=== PATIENT | female | born 1945 | race Caucasian/White ===

== ENCOUNTER → 2017-12-15 | Outpatient (CLI) | payer BC ==
[~2017-12-15] MED LIST: ALPH300C PO; BARB1CAP PO; GLIM1TAB2 PO
== END | disposition home or self-care (01) ==
LOC: C.RDSM 15:59
PROVIDERS: ATTEND Physical Medicine & Rehabilitation Sports Medicine
DX: M25.511 Pain in right shoulder (principal)

== ENCOUNTER 2020-01-06 06:17 | Observation (INO) ==
[2020-01-06] MEDS ORDERED: dilTIAZem HCl 5 MG/ML 5 ML VIAL IV STA (06:39)
[2020-01-06 06:43] LABS: Basophils # (auto) 0.02 K/uL (0-0.2); Basophils % (auto) 0.2 %; Eosinophils # (auto) 0.07 K/uL (0-0.5); Eosinophils % (auto) 0.8 %; Hematocrit (blood only) 43.1 % (37-47); Hemoglobin 14.3 g/dL (12.0-16.0); Immature Granulocytes # (auto) 0.03 K/uL (0.00-0.02); Immature Granulocytes % (auto) 0.3 %; Lymphocytes % (auto) 20.4 %; Mean Corpuscular Hemoglobin 28.4 pg (25-34); Mean Corpuscular Hgb Conc 33.2 g/dL (32-36); Mean Corpuscular Volume 85.7 fL (80-100); Monocytes # (auto) 0.59 K/uL (0.11-0.59); Monocytes % (auto) 6.3 %; Platelet Count 264 K/uL (130-400); RDW Coefficient of Variation 14.4 % (11.5-14.5); RDW Standard Deviation 44.1 fL (36.4-46.3); Red Blood Count 5.03 M/uL (4.2-5.4); White Blood Count 9.31 K/uL (4.8-10.8)
[2020-01-06] MEDS: MAGNESIUM SULFATE / D5W 1 GM/100 ML BAG IV SCH ×4 (06:46→10:16)
[2020-01-06] MEDS ORDERED: NovoLIN-R INSULIN PER UNIT CHARGE IV STA (06:51)
[2020-01-06 06:53] LABS: INR 1.1 (0.9-1.1); Partial Thromboplastin Time 27.5 Seconds (21.0-31.0); Prothrombin Time 11.8 Seconds (9.0-12.0)
--- NOTE | 2020-01-06 06:53 | XRay Report ---
XR chest 1V portable CLINICAL HISTORY: Atypical chest pain COMPARISON STUDY: No previous studies for comparison. FINDINGS: The cardiac and mediastinal contours are normal. There is no evidence of focal pulmonary co nsolidation. There is no evidence of failure. No pleural effusions are visualized.[There is an old pr oximal right humeral deformity. IMPRESSION: No active disease in the chest. ACT 112: Negative or not required by law. Electronically signed by: Alexei Jones M.D. 01/06/2020 6:52 AM
[2020-01-06 07:03] LABS: iSTAT Creatinine 0.4 mg/dl (0.6-1.3); iSTAT Hemoglobin 13.6 g/dl (12.0-16.0); iSTAT Ionized Calcium 1.14 mmol/l (1.12-1.32); iSTAT Potassium 3.9 mmol/L (3.3-5.0)
--- NOTE | 2020-01-06 07:07 | Emergency Department Note ---
History of Present Illness General Chief complaint: Back Injury/Pain Stated complaint: BACK PAIN Time Seen by Provider: 01/06/20 06:32 Source: patient, family (), RN notes reviewed and old records reviewed Mode of arrival: ambulatory Limitations: no limitations History of Present Illness Provider complaint: Back pain Onset (ago): week(s) 3 Location: back Radiation: non-radiation Severity: moderate Pain Consistency: + colicky Maximum Pain Intensity: 6 Current Pain Intensity: 6 Quality: + aching Relieved By: + immobilization Exacerbated By: + movement Associated symptoms: + denies other symptoms; no chest pain, no fever/chills, no nausea/vomiting and no shortness of breath This is a 74-year-old female who presents the emergency department complaining of back pain. The patient reports she is been having back pain for the past 3 weeks. She was seen by her primary care physician and was placed on acyclovir for presumed shingles. The patient then followed up with a masonry installer in the [place] area who felt that the patient had an eczema. She reports her back pain is become much worse over the past 3 days. She has not taken anything for the pain this morning. Patient denies any heart history but is a diabetic. Home Medications Home Medications Medication Instructions Recorded Confirmed Type acyclovir 800 mg PO TID 01/06/20 01/06/20 History clobetasol 1 applic TOPICAL UD 01/06/20 01/06/20 History gabapentin 100 mg PO BID 01/06/20 01/06/20 History glimepiride 1 mg PO DAILY 01/06/20 01/06/20 History methylprednisolone 0 mg PO UD 01/06/20 01/06/20 History Allergies Allergy/AdvReac Type Severity Reaction Status Date / Time No Known Allergies Allergy Unverified 01/06/20 06:40 Past Med/Surg History Medical History (Updated 01/07/20 @ 02:37 by Francis Colorado MD) Atrial fibrillation with RVR Diabetes Hyperlipidemia Osteoporosis Surgical History History of gynecologic surgery S/P trigger finger release Family History Other Cancer Diabetes Osteoporosis Stroke Social History Smoking Status: Never smoker Second Hand Exposure: No; Do You Dip or Chew Tobacco: No; Hx Alcohol Use: No Hx Substance Use: No Preferred Language: Hebrew Communication Ability: Effective 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 Beliefs That Will Affect Care: None Current Living Situation: Spouse Feels Safe at Home: Yes Safety Concerns: Feels Safe At This Time Review of Systems A total of 10 systems reviewed and were otherwise negative Physical Exam Vital Signs Vital Signs - 24 hr 01/06/20 06:21 01/06/20 06:34 01/06/20 06:37 Temperature 36.4 C L Temperature Source Oral Pulse Rate 137 H 150 H Pulse Rate [Apical] Pulse Rate from SpO2 Sensor Pulse Rhythm Irregular Respiratory Rate 16 Respiratory Depth Normal Blood Pressure 121/78 Blood Pressure [Left Arm] Blood Pressure Mean 92 Blood Pressure Mean [Left Arm] Blood Pressure Position Sitting Pulse Oximetry 97 97 Oxygen Delivery Method Room Air Room Air Room Air Sepsis Recent Fever Within 48 Hours No Sepsis New/Unexplained Change in Mental Status No Sepsis Action Taken by Nursing No Action Required 01/06/20 06:56 01/06/20 07:00 01/06/20 07:09 Temperature Temperature Source Pulse Rate 97 H 92 H Pulse Rate [Apical] 93 H Pulse Rate from SpO2 Sensor 100 H 93 H Pulse Rhythm Respiratory Rate 21 19 18 Respiratory Depth Blood Pressure 102/65 108/66 Blood Pressure [Left Arm] 108/66 Blood Pressure Mean 74 78 Blood Pressure Mean [Left Arm] 80 Blood Pressure Position Pulse Oximetry 95 95 96 Oxygen Delivery Method Room Air Room Air Room Air Sepsis Recent Fever Within 48 Hours Sepsis New/Unexplained Change in Mental Status Sepsis Action Taken by Nursing 01/06/20 09:00 Temperature Temperature Source Pulse Rate Pulse Rate [Apical] 79 Pulse Rate from SpO2 Sensor Pulse Rhythm Respiratory Rate 18 Respiratory Depth Blood Pressure Blood Pressure [Left Arm] 126/69 Blood Pressure Mean Blood Pressure Mean [Left Arm] 88 Blood Pressure Position Pulse Oximetry 98 Oxygen Delivery Method Room Air Sepsis Recent Fever Within 48 Hours Sepsis New/Unexplained Change in Mental Status Sepsis Action Taken by Nursing VITAL SIGNS - Vital signs and nursing notes were reviewed. GENERAL - 74-year-old female appearing stated age who is in no acute distress. Communicates well with provider and answers questions appropriately. SKIN - Without rashes. HEAD - NC/AT. EYES - PERRL with EOMI bilaterally. Sclera anicteric. Palpebral conjunctiva pink and moist with no injection noted. EARS - No deformities of external structures noted on gross examination bilaterally. No pain elicited with palpation of the tragus bilaterally. External auditory canals without discharge or otorrhea. Tympanic membranes pearly echeverria without retraction or bulging. No fluid or purulent material visualized behind the TM. Handle of malleus, umbo, cone of light, pars tensa/flaccid all easily visualized. NOSE - Midline and without cyanosis. No epistaxis or purulent drainage noted. Septum midline without deviation or septal hematoma noted. MOUTH/OROPHARYNX - Without perioral cyanosis. Buccal mucosa pink and moist and without leukoplakia. Tongue midline with equal elevation of palate bilaterally. No tonsillar hypertrophy, erythema, or exudates noted. dentition noted. NECK - Neck with FROM. Supple to palpation. lymphadenopathy noted. No nuchal rigidity. LUNGS - Chest wall symmetric without accessory muscle use, intercostals retractions, or central cyanosis. Normal vesicular breath sounds CTA B/L. No wheezes, rales, or rhonchi appreciated. CARDIAC - RRR with S1/S2. No murmur, rubs, or gallops appreciated. ABDOMEN - Abdominal contour without pulsations or visible masses. BS normoactive all four quadrants. No tenderness, palpable masses, hepatosplenomegaly, or ascites noted. EXTREMITIES - No clubbing or peripheral cyanosis. No pretibial edema present. +3/5 radial, posterior tibial, and dorsalis pedis pulses palpated throughout. +5/5 strength noted in UE/LE bilaterally. NEUROLOGIC - Cranial nerves II through XII grossly intact. Sensory intact to light touch throughout. Patellar reflexes +2/4. PSYCH - A&Ox3 and cooperates fully with examiner. Pt is very pleasant and interacts well with examiner. Course Administered Medications Apixaban (Apixaban 5 Mg Tablet) 5 mg PO BID KIERSTEN Stop: 02/05/20 20:59 Last Admin: 01/06/20 20:34 Dose: 5 mg Documented by: [id number] Insulin Aspart (Insulin Aspart 100 Units/Ml 3 Ml Pen) 0 units SC ACHS KIERSTEN Stop: 02/05/20 11:30 Last Admin: 01/06/20 20:34 Dose: 3 units Documented by: [id number] Cosigned by: [id number] Admin: 01/06/20 18:08 Dose: 6 units Documented by: [id number] Cosigned by: [id number] Admin: 01/06/20 12:58 Dose: 9 units Documented by: [id number] Cosigned by: [id number] Metoprolol Tartrate (Metoprolol Tartrate 25 Mg Tab) 25 mg PO BID [facility] Stop: 02/05/20 11:30 Last Admin: 01/06/20 20:34 Dose: 25 mg Documented by: [id number] Admin: 01/06/20 13:00 Dose: 25 mg Documented by: [id number] Discontinued Medications Diltiazem HCl (Diltiazem Hcl 5 Mg/Ml 5 Ml Vial) 12 mg IV NOW STA Stop: 01/06/20 06:40 Last Admin: 01/06/20 06:51 Dose: 12 mg Documented by: [id number] Cosigned by: [id number] Magnesium Sulfate/Dextrose (Magnesium Sulfate / D5w) 1 gm in 100 mls @ 200 mls/hr IV Q30M KIERSTEN Stop: 01/06/20 07:38 Last Infusion: 01/06/20 08:05 Dose: 0 mls/hr Documented by: [id number] Admin: 01/06/20 07:34 Dose: 200 mls/hr Documented by: [id number] Infusion: 01/06/20 07:28 Dose: 0 mls/hr Documented by: [id number] Admin: 01/06/20 06:46 Dose: 200 mls/hr Documented by: [id number] Magnesium Sulfate/Dextrose (Magnesium Sulfate / D5w) 1 gm in 100 mls @ 200 mls/hr IV Q30M [facility] Stop: 01/06/20 07:39 Last Infusion: 01/06/20 10:46 Dose: 0 mls/hr Documented by: [id number] Admin: 01/06/20 10:16 Dose: 200 mls/hr Documented by: [id number] Infusion: 01/06/20 08:55 Dose: 0 mls/hr Documented by: [id number] Admin: 01/06/20 08:13 Dose: 200 mls/hr Documented by: [id number] Insulin Aspart (Insulin Aspart 100 Units/Ml 3 Ml Pen) 0 units SC TODAY@0200 ONE Stop: 01/07/20 02:01 Last Admin: 01/07/20 02:03 Dose: Not Given Documented by: [id number] Cosigned by: [id number] Insulin Glargine (Insulin Glargine Solostar 100 Units/Ml 3 Ml Pen) 10 units SC DAILY KIERSTEN Stop: 02/05/20 11:30 Last Admin: 01/06/20 12:57 Dose: 10 units Documented by: [id number] Cosigned by: [id number] Insulin Glargine (Insulin Glargine Solostar 100 Units/Ml 3 Ml Pen) 6 units SC HS ONE Stop: 01/06/20 21:01 Last Admin: 01/06/20 20:33 Dose: 6 units Documented by: [id number] Cosigned by: [id number] Insulin Human Regular (Novolin-R Insulin Per Unit Charge) 10 units IV NOW STA Stop: 01/06/20 06:52 Last Admin: 01/06/20 07:03 Dose: 10 units Documented by: [id number] Cosigned by: [id number] Ioversol (Optiray 320 125ml) 120 ml IV ONCE ONE Stop: 01/06/20 07:21 Last Admin: 01/06/20 07:20 Dose: 120 ml Documented by: [id number] Magnesium Sulfate/Dextrose (Magnesium Sulfate 1gm / D5w Bag) Confirm Administered Dose 1 gm IV .STK-MED ONE Stop: 01/06/20 10:17 Last Admin: 01/06/20 10:19 Dose: Not Given Documented by: [id number] Critical Care Time I have personally spent greater than 30 minutes of critical care time in the direct management of this patient. This includes bedside care, interpretation of diagnostic studies, and testing, discussion with consultants, patient, and family members, and other required patient management activities. This 30 minutes is in excess of all separately billable procedures. Medical Decision Making Differential Diagnosis Cardiac ischemia, aortic dissection, pulmonary embolism, pneumothorax, pneumonia, pericarditis, myocarditis, esophageal rupture, GERD, cholecystitis, pancreatitis, musculoskeletal, as well as other pathologies. Medical Records Attestation: I reviewed the patient's medical records. Home Medications Current Medication List: was personally reviewed by me Laboratory Data Attestation: I reviewed the patient's lab results. Result diagrams: 01/06/20 06:35 01/06/20 06:35 Lab Results 01/06/20 01/06/20 01/06/20 Range/Units 06:35 06:35 06:35 WBC 9.31 (4.8-10.8) K/uL RBC 5.03 (4.2-5.4) M/uL Hgb 14.3 (12.0-16.0) g/dL POC Hgb (12.0-16.0) g/dl Hct 43.1 (37-47) % POC Hct (37-47) % MCV 85.7 (80-100) fL MCH 28.4 (25-34) pg MCHC 33.2 (32-36) g/dL RDW Std Deviation 44.1 (36.4-46.3) fL RDW Coeff of Maddie 14.4 (11.5-14.5) % Plt Count 264 (130-400) K/uL MPV 10.0 (7.4-10.4) fL Immature Gran % (Auto) 0.3 % Neut % (Auto) 72.0 % Lymph % (Auto) 20.4 % Sawyer % (Auto) 6.3 % Eos % (Auto) 0.8 % Baso % (Auto) 0.2 % Neut # (Auto) 6.70 H (1.4-6.5) K/uL Lymph # (Auto) 1.90 (1.2-3.4) K/uL Sawyer # (Auto) 0.59 (0.11-0.59) K/uL Eos # (Auto) 0.07 (0-0.5) K/uL Baso # (Auto) 0.02 (0-0.2) K/uL Immature Gran # (Auto) 0.03 H (0.00-0.02) K/uL PT 11.8 (9.0-12.0) Seconds INR 1.1 (0.9-1.1) APTT 27.5 (21.0-31.0) Seconds PTT Ratio 1.0 POC Sodium (135-144) mmol/L Sodium 136 (136-145) mmol/L POC Potassium (3.3-5.0) mmol/L Potassium 3.7 (3.5-5.1) mmol/L POC Chloride (101-112) mmol/L Chloride 104 (98-107) mmol/L Carbon Dioxide 23 (21-32) mmol/L POC Total CO2 (24-31) mmol/L Anion Gap 10.0 (3-11) POC Anion Gap (16-25) mmol/L POC BUN (7-18) mg/dl BUN 14 (7-18) mg/dl Creatinine 0.73 (0.6-1.2) mg/dl POC Creatinine (0.6-1.3) mg/dl Est Cr Clr Drug Dosing 47.9 ml/min Est GFR ( Amer) 92.7 Est GFR (Non-Af Amer) 80.0 BUN/Creatinine Ratio 18.8 (10-20) Glucose 305 H* (70-99) mg/dl POC Glucose (70-99) mg/dl POC Glucose (other) (70-99) mg/dl Calcium 8.4 L (8.5-10.1) mg/dl POC Ioniz Calcium Wagner (1.12-1.32) mmol/l Total Bilirubin 0.3 (0.2-1) mg/dl AST 17 (15-37) U/L ALT 25 (12-78) U/L Alkaline Phosphatase 167 H (45-117) U/L Total Creatine Kinase 33 (26-192) U/L CK-MB (CK-2) < 1.0 (0.5-3.6) ng/ml CK/CKMB % Calc Not Reportable Troponin I < 0.015 (0-0.045) ng/ml Total Protein 6.7 (6.4-8.2) gm/dl Albumin 3.0 L (3.4-5.0) gm/dl Globulin 3.7 (2.5-4.0) gm/dl Albumin/Globulin Ratio 0.8 L (0.9-2) Lipase 209 (73-393) U/L Beta-Hydroxybutyric Acd 17.40 H (0.2-2.81) mg/dl TSH (0.300-4.500) uIu/ml 01/06/20 01/06/20 01/06/20 Range/Units 06:35 06:49 09:15 WBC (4.8-10.8) K/uL RBC (4.2-5.4) M/uL Hgb (12.0-16.0) g/dL POC Hgb 13.6 (12.0-16.0) g/dl Hct (37-47) % POC Hct 40 (37-47) % MCV (80-100) fL MCH (25-34) pg MCHC (32-36) g/dL RDW Std Deviation (36.4-46.3) fL RDW Coeff of Maddie (11.5-14.5) % Plt Count (130-400) K/uL MPV (7.4-10.4) fL Immature Gran % (Auto) % Neut % (Auto) % Lymph % (Auto) % Sawyer % (Auto) % Eos % (Auto) % Baso % (Auto) % Neut # (Auto) (1.4-6.5) K/uL Lymph # (Auto) (1.2-3.4) K/uL Sawyer # (Auto) (0.11-0.59) K/uL Eos # (Auto) (0-0.5) K/uL Baso # (Auto) (0-0.2) K/uL Immature Gran # (Auto) (0.00-0.02) K/uL PT (9.0-12.0) Seconds INR (0.9-1.1) APTT (21.0-31.0) Seconds PTT Ratio POC Sodium 137 (135-144) mmol/L Sodium (136-145) mmol/L POC Potassium 3.9 (3.3-5.0) mmol/L Potassium (3.5-5.1) mmol/L POC Chloride 100 L (101-112) mmol/L Chloride (98-107) mmol/L Carbon Dioxide (21-32) mmol/L POC Total CO2 23 L (24-31) mmol/L Anion Gap (3-11) POC Anion Gap 19.0 (16-25) mmol/L POC BUN 16 (7-18) mg/dl BUN (7-18) mg/dl Creatinine (0.6-1.2) mg/dl POC Creatinine 0.4 L (0.6-1.3) mg/dl Est Cr Clr Drug Dosing ml/min Est GFR ( Amer) Est GFR (Non-Af Amer) BUN/Creatinine Ratio (10-20) Glucose (70-99) mg/dl POC Glucose 278 H (70-99) mg/dl POC Glucose (other) 307 H (70-99) mg/dl Calcium (8.5-10.1) mg/dl POC Ioniz Calcium Wagner 1.14 (1.12-1.32) mmol/l Total Bilirubin (0.2-1) mg/dl AST (15-37) U/L ALT (12-78) U/L Alkaline Phosphatase (45-117) U/L Total Creatine Kinase (26-192) U/L CK-MB (CK-2) (0.5-3.6) ng/ml CK/CKMB % Calc Troponin I (0-0.045) ng/ml Total Protein (6.4-8.2) gm/dl Albumin (3.4-5.0) gm/dl Globulin (2.5-4.0) gm/dl Albumin/Globulin Ratio (0.9-2) Lipase (73-393) U/L Beta-Hydroxybutyric Acd (0.2-2.81) mg/dl TSH 2.350 (0.300-4.500) uIu/ml Imaging Data Radiologist's Impression: [facility], [place] [phone] XRay Report Patient: GENARO MONTEMAYOR V Admit Date: 01/06/20 MR#: [id number] Address1: [address] [place] [address] Acct ID:[id number] Address2: Date: 1945 [facility] Zip: [place] [address] Age: 74 Location: ED Sex: F Room/Bed: Att Phy: Diagnosis: BACK PAIN Leda Phy: Chloe Youssef MD Service Date: 01/06/20 Fam Phy: Interpreting Phy: Alexei Jones MD Admit Phy: Ordering Phy: Francis Colorado MD cc: ~ XR chest 1V portable CLINICAL HISTORY: Atypical chest pain COMPARISON STUDY: No previous studies for comparison. FINDINGS: The cardiac and mediastinal contours are normal. There is no evidence of focal pulmonary consolidation. There is no evidence of failure. No pleural effusions are visualized.[There is an old proximal right humeral deformity. IMPRESSION: No active disease in the chest. ACT 112: Negative or not required by law. Electronically signed by: Alexei Jones M.D. 01/06/2020 6:52 AM Dictated: 01/06/20 0651 Transcribed: 01/06/20 0651 [facility], [place] [phone] CT Scan Report Patient: GENARO MONTEMAYOR VAdmit Date: 01/06/20 MR#: [id number]: [address] [facility] Acct ID:[id number]: Date: [address] [place] [address] Zip: [place] [address] Age: 74Location: ED Sex: FRoom/Bed: Att Phy:Diagnosis: BACK PAIN Leda Phy: Chloe Youssef MDService Date: 01/06/20 Fam Phy:Interpreting Phy: Timothy Coats MD Admit Phy: Ordering Phy: Francis Colorado MD cc: ~ THORACIC SPINE CT CT DOSE: HISTORY: Pt c/o back pain TECHNIQUE: Multiaxial CT images of the thoracic spine were performed and reformatted in the sagittal and coronal plane without the use of contrast. A do se lowering technique was utilized adhering to the principles of ALARA. COMPARISON: None. FINDINGS: No fractures. No subluxation. Paraspinal soft tissues are unremarkable. Mild degenerative disc disease within the thoracic spine. No significant central canal narrowing by CT technique. Trace right pleural effusion. IMPRESSION: No fractures within the thoracic spine. Trace right pleural effusion. ACT 112: Negative or not required by law. Electronically signed by: Timothy Coats M.D. 01/06/2020 7:42 AM Dictated: 01/06/20739 Transcribed: 01/06/20739 [place], [place] [phone] CT Scan Report Patient: GENARO MONTEMAYOR Date: 01/06/20 MR#: [id number]: [address] [facility] Acct ID:[id number]: Date: [address] [place] [address] Zip: [place] [address] Age: 74Location: ED Sex: FRoom/Bed: Att Phy:Diagnosis: BACK PAIN Leda Phy: Mikael Chloe MDService Date: 01/06/20 Fam Phy:Interpreting Phy: Alexei Jones MD Admit Phy: Ordering Phy: Francis Colorado MD cc: ~ CT ANGIOGRAM OF THE CHEST CLINICAL HISTORY: Atypical chest pain. Possible acute pulmonary embolism. COMPARISON STUDY: Chest x-ray dated 01/06/2020 TECHNIQUE: Following the IV administration of 120 mL of Optiray-320, CT angiogram of the thorax was performed from the thoracic inlet to the lung bases utilizing the pulmonary embolus protocol. Images are reviewed in the axial, sagittal, and coronal planes. IV contrast was administered without complication. MIP imaging was performed. A dose lowering technique was utilized adhering to the principles of ALARA. CT DOSE: 256.03 mGy.cm FINDINGS: No pathologically enlarged axillary mediastinal or hilar lymph nodes were visualized. There was no evidence of thoracic aortic dilatation. There were no pulmonary artery filling defects to indicate acute pulmonary embolism. There are trace bilateral pleural effusions. There is no lobar consolidation. There is scattered areas of atelec tasis/scarring. There is no pneumothorax. There are clustered subcentimeter right lower lobe pulmonary nodules, likely infectious/inflammatory. A few additional scattered subcentimeter solid nodules are visualized. There is a nonspecific 6 mm right hepatic lobe hypodensity. There is a 2 mm upper pole left renal calcification. IMPRESSION: 1. No evidence of acute pulmonary embolism 2. Trace bilateral pleural effusions 3. Clustered right lower lobe pulmonary nodules, statistically infectious/inf lammatory ACT 112: Negative or not required by law. Electronically signed by: Alexei Jones M.D. 01/06/2020 7:43 AM Dictated: 01/06/20737 Transcribed: 01/06/20737 ECG Data Attestation: I personally reviewed and interpreted this ECG as follows: Indication: + other (back pain ) Rate (beats per minute): 145 Rhythm: + atrial fibrillation (with RVR) ECG Intervals/blocks: + Normal QT-c (490) ECG [place]: + Normal ECG ST segments: + ST depression (Anterior) and + T-wave inversions (Anterior) Comparison ECG Date: from (11/08/2014) Change: the following changes noted (afib has replaced NSR) Blood Pressure Blood Pressure Findings: Low blood pressure MDM Narrative This is a 74-year-old female who presents emergency department with back pain that has been ongoing for the past 3 weeks. Upon arrival to the emergency department patient is in A. fib with RVR with a heart rate between 150 and 180. She was given 4 g of magnesium here in the emergency department and started on Cardizem. Due to the nature of the patient's pain she was sent for CAT scan of the chest as well as a spine. I suspect her atrial fibrillation may have been ongoing for the past 3 weeks as when her heart rate would slow down the pain went away. She was also given 10 of insulin for her elevation in her blood sugar. Patient was seen and evaluated as above in room A3. Review was performed of nursing notes and vital signs. I did review pertinent previous visits and patient history. After obtaining a thorough history and physical examination the above work up was performed. An order was placed for continuous cardiac monitoring. The monitor shows a rate of 93 with A fib rhythm. The patient was evaluated during the global COVID-19 pandemic, and that diagnosis was suspected/considered upon their initial presentation. Their evaluation, treatment and testing was consistent with current guidelines for patients who present with complaints or symptoms that may be related to COVID- 19. Impression & Plan Atrial fibrillation with RVR, Diabetes Discharge Plan Visit Data Chief Complaint: Back Injury/Pain Stated Complaint: BACK PAIN ED Provider: Francis Colorado Discharge Problem: Atrial fibrillation with RVR, Diabetes Patient Disposition: Admitted As Inpatient Discharge Instructions Interventions: ED Discharge Assessment Last Done: 01/06/20 09:54 Discharge Problem: Diabetes Qualifiers: Diabetes mellitus type: other specified (including EDUARDO) Diabetes mellitus long goods drier insulin use: unspecified long goods drier insulin use status Diabetes mellitus complication status: with other specified complication Qualified Code(s): E13.69 - Other specified diabetes mellitus with other specified complication
[2020-01-06] MEDS ORDERED: OPTIRAY 320 125ml IV ONE (07:20)
[2020-01-06 07:22] LABS: Alanine Aminotransferase 25 U/L (12-78); Albumin Globulin Ratio 0.8 (0.9-2); Alkaline Phosphatase 167 U/L (45-117); Aspartate Aminotransferase 17 U/L (15-37); BUN Creatinine Ratio 18.8 (10-20); Bilirubin,Total 0.3 mg/dl (0.2-1); Blood Urea Nitrogen 14 mg/dl (7-18); Calcium 8.4 mg/dl (8.5-10.1); Carbon Dioxide 23 mmol/L (21-32); Chloride 104 mmol/L (98-107); Creatine Kinase 33 U/L (26-192); Creatine Kinase MB < 1.0 ng/ml (0.5-3.6); Creatinine Clr Calc Pharmacy 47.9 ml/min; Est GFR (African American) 92.7; Globulin 3.7 gm/dl (2.5-4.0); Glucose 305 mg/dl (70-99); Lipase 209 U/L (73-393); Potassium 3.7 mmol/L (3.5-5.1); Sodium 136 mmol/L (136-145); Total Protein 6.7 gm/dl (6.4-8.2); Troponin I < 0.015 ng/ml (0-0.045)
--- NOTE | 2020-01-06 07:44 | CT Scan Report ---
THORACIC SPINE CT CT DOSE: HISTORY: Pt c/o back pain TECHNIQUE: Multiaxial CT images of the thoracic spine were performed and reformatted in the sagittal and coronal plane without the use of contrast. A dose lowering technique was utilized adhering to th e principles of ALARA. COMPARISON: None. FINDINGS: No fractures. No subluxation. Paraspinal soft tissues are unremarkable. Mild degenerative d isc disease within the thoracic spine. No significant central canal narrowing by CT technique. Trace right pleural effusion. IMPRESSION: No fractures within the thoracic spine. Trace right pleural effusion. ACT 112: Negative or not required by law. Electronically signed by: Timothy Coats M.D. 01/06/2020 7:42 AM
--- NOTE | 2020-01-06 07:44 | CT Scan Report ---
CT ANGIOGRAM OF THE CHEST CLINICAL HISTORY: Atypical chest pain. Possible acute pulmonary embolism. COMPARISON STUDY: Chest x-ray dated 01/06/2020 TECHNIQUE: Following the IV administration of 120 mL of Optiray-320, CT angiogram of the thorax was p erformed from the thoracic inlet to the lung bases utilizing the pulmonary embolus protocol. Images a re reviewed in the axial, sagittal, and coronal planes. IV contrast was administered without complica tion. MIP imaging was performed. A dose lowering technique was utilized adhering to the principles o f ALARA. CT DOSE: 256.03 mGy.cm FINDINGS: No pathologically enlarged axillary mediastinal or hilar lymph nodes were visualized. There was no evidence of thoracic aortic dilatation. There were no pulmonary artery filling defects to indicate acute pulmonary embolism. There are trace bilateral pleural effusions. There is no lobar consolidation. There is scattered areas of atelectasis/scarring. There is no pneumo thorax. There are clustered subcentimeter right lower lobe pulmonary nodules, likely infectious/infla mmatory. A few additional scattered subcentimeter solid nodules are visualized. There is a nonspecific 6 mm right hepatic lobe hypodensity. There is a 2 mm upper pole left renal leesa cification. IMPRESSION: 1. No evidence of acute pulmonary embolism 2. Trace bilateral pleural effusions 3. Clustered right lower lobe pulmonary nodules, statistically infectious/inflammatory ACT 112: Negative or not required by law. Electronically signed by: Alexei Jones M.D. 01/06/2020 7:43 AM
--- NOTE | 2020-01-06 08:48 | History & Physical Report ---
Date of Service January 06, 2020 Assessment & Plan (1) Atrial fibrillation with RVR: 74 y/o F here with back pain noted to be in new onset rapid a fib in ED New onset A fib with RVR Received cardizem bolus and 4gm IV magnesium in ED. HR now in 110-130s. Troponin in ED normal Monitor on Tele Check second troponin. Check Echo, TSH Add metoprolol 25mgs bid CHADSVASC score of 4 - start eliquis Diabetes Type II Hyperglycemic in ED - 300. Beta Hydroxybutrate - 17. Usually well controlled A1c as outpatient except recent one from feb 2019 - 7.2 - plan was to add another agent - didn't follow up. Will Check A1c Hold glimeperide start glargine 10u. aspart SSI, glycemic consult. HLD/Osteoporosis Has declined being on meds. Diabetic diet Full code Eliquis (2) Diabetes: (3) Hyperlipidemia: (4) Osteoporosis: History of Present Illness Primary Care Provider: Chloe Youssef MD 74 y/o F presented to ED with upper back pain. She described it being severe and in between her shoulder blades. Denies associated shortness of breath, palpitation and dizziness. Pain started 3 weeks ago. She started to have neck around the same time and in upper back. The pain worse in last 3 days so came to ED. She did notice being nauseous when bending forward this morning 3 wks ago - She had rash on both sides of face on orthodoxy region and was treated with acyclovir. She had new rashes coming and was prescribed prednisone during this period but never took it. 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 Allergies Allergy/AdvReac Type Severity Reaction Status Date / Time No Known Allergies Allergy Unverified 01/06/20 06:40 Home Medications Home Medications Medication Instructions Recorded Confirmed Type acyclovir 800 mg PO TID 01/06/20 01/06/20 History clobetasol 1 applic TOPICAL UD 01/06/20 01/06/20 History gabapentin 100 mg PO BID 01/06/20 01/06/20 History glimepiride 1 mg PO DAILY 01/06/20 01/06/20 History methylprednisolone 0 mg PO UD 01/06/20 01/06/20 History apixaban [Eliquis] 5 mg PO BID #60 tab 01/07/20 Rx glimepiride 2 mg PO DAILY #30 tab 01/07/20 Rx metformin 500 mg PO DAILY #30 tab 01/07/20 Rx metoprolol tartrate 25 mg PO BID #60 tab 01/07/20 Rx Past Med/Surg History Medical History (Updated 01/07/20 @ 02:37 by Francis Colorado MD) Atrial fibrillation with RVR Diabetes Hyperlipidemia Osteoporosis Surgical History History of gynecologic surgery S/P trigger finger release Family History Other Cancer Diabetes Osteoporosis Stroke Social History Smoking Status: Never smoker Second Hand Exposure: No; Do You Dip or Chew Tobacco: No; Hx Alcohol Use: No Hx Substance Use: No Preferred Language: Singaporean Communication Ability: Effective Video Intern Required: No Beliefs That Will Affect Care: None Current Living Situation: Spouse Feels Safe at Home: Yes Safety Concerns: Feels Safe At This Time Review of Systems Constitutional: no fever and no sweats Eyes: no diplopia Ear, Nose, Mouth, Throat: no ear trauma reports difficulty hearing right ear. Respiratory: no cough, no dyspnea and no hemoptysis Cardiovascular: no dyspnea at rest Gastrointestinal: no abdominal pain and no bloating Genitourinary: no urinary frequency and no urinary incontinence Musculoskeletal: see HPI Integumentary: + rash Neurologic: no gait abnormality and no falls Psychiatric: no hopelessness and no change in appetite Endocrine: no fatigue, no polydipsia and no polyphagia Hematologic / Lymphatic: no easy bleeding and no coagulopathy Physical Exam Constitutional: well developed, + acute distress, + well hydrated and + thin Eyes: PERRL, conjunctivae normal, anicteric sclerae ENMT: Right external ear canal with cerumen. rest exam normal Neck: trachea midline, no thyromegaly Respiratory: normal respiratory effort, lungs clear to auscultation Cardiovascular: Rate/Rhythm: regular rate Heart Sounds: no murmur Irregularly irregular pulse Gastrointestinal (Abdomen): normal bowel sounds, soft, nontender, no hepatosplenomegaly Musculoskeletal: no cyanosis or clubbing, extremities motor strength 5/5 Skin: no rashes, warm and dry Neurologic: patellar DTR's 2+ bilat, sensation intact Psychiatric: A+Ox3, euthymic affect Results & Data Results & Data ([facility]) Vital Signs (Past 12 Hours) Vital Signs Temp Pulse Pulse Resp BP BP Pulse Ox 01/06/20 07:09 93 H 18 108/66 96 01/06/20 07:00 92 H 19 108/66 95 01/06/20 06:56 97 H 21 102/65 95 01/06/20 06:34 150 H 97 01/06/20 06:21 36.4 C L 137 H 16 121/78 97
--- NOTE | 2020-01-06 08:58 | Electrocardiogram Report ---
Test Reason : Blood Pressure : / mmHG Vent. Rate : 145 BPM Atrial Rate : 153 BPM P-R Int : 000 ms QRS Dur : 088 ms QT Int : 316 ms P-R-T Axes : 000 068 -73 degrees QTc Int : 490 ms Atrial fibrillation with rapid ventricular response Chronic Nonspecific ST and T wave abnormality Abnormal ECG When compared with ECG of 08-NOV-2014 09:01, Atrial fibrillation has replaced Sinus rhythm Vent. rate has increased BY 85 BPM Confirmed by Brennan Jones ([id number]) on 01/06/2020 8:58:21 AM Referred By: REFERRED SELF Confirmed By:Brennan Jones
[2020-01-06] MEDS ORDERED: MAGNESIUM SULFATE 1GM / D5W BAG IV ONE (10:16)
[2020-01-06] MEDS ORDERED: ACETAMINOPHEN 325 MG TAB PO PRN (11:31)
[2020-01-06] MEDS ORDERED: DEXTROSE 50% 50 ML SYRINGE IV PRN (11:31)
[2020-01-06] MEDS ORDERED: CARBOHYDRATES FOR HYPOGLYCEMIA PO PRN (11:31)
[2020-01-06] MEDS ORDERED: GLUCAGON FOR INJ 1 MG VIAL SQ PRN (11:31)
[2020-01-06] MEDS ORDERED: INSULIN GLARGINE SOLOSTAR 100 UNITS/ML 3 ML PEN SC SCH (11:31)
[2020-01-06] MEDS ORDERED: ONDANSETRON INJ 2 MG/ML 2 ML VIAL IV PRN (11:31)
[2020-01-06] MEDS ORDERED: GLUCOSE 40% GEL 15 GM TUBE PO PRN (11:31)
[2020-01-06] MEDS ORDERED: GLUCOSE 10 TABS/TUBE PO PRN (11:31)
[2020-01-06] MEDS ORDERED: PHARMACY GLYCEMIC MGMT CONSULT SCH (11:40)
--- NOTE | 2020-01-06 12:36 | XCELERA ---
[id number]
[2020-01-06] MEDS: INSULIN ASPART 100 UNITS/ML 3 ML PEN SC SCH ×3 (12:58→20:34)
[2020-01-06] MEDS: METOPROLOL TARTRATE 25 MG TAB PO SCH ×2 (13:00→20:34)
--- NOTE | 2020-01-06 14:31 | Pharmacy Report ---
Pharmacy Glycemic Short Note 2 - Date of Service January 06, 2020 - Glycemic Short BSG Results (Last 24 hours): 01/06/20 01/06/20 01/06/20 06:35 06:49 09:15 Glucose 305 H* POC Glucose 278 H POC Glucose (other) 307 H 01/06/20 11:32 Glucose POC Glucose 268 H POC Glucose (other) OUTPATIENT ANTIDIABETIC REGIMEN: * Glimepiride 1mg PO daily * A1c = ? (result pending) ASSESSMENT: * Type 2 diabetic admitted for c/o ongoing back pain found to a new onset a fib w/ RVR * Patient's initial lab work reveals GLU of 305 however normal AG and bicarb * She was recently ordered steroid therapy, which could explain the hyperglycemia - however upon talking with her she stated she refused to take the steroid. No steroids are currently ordered for this patient. A recent A1c is not available, but I have ordered one to determine if today's lab findings are reflective of acute hyperglycemia or an ongoing level of inadequate control. Patient does not test BSGs at home. * Basal/bolus insulin regimen will be initiated based upon patient's weight and moderate/severe stress level PLAN FOR INPATIENT GLYCEMIC CONTROL: * Check A1c using current specimen in lab if possible, otherwise defer until next lab draw. * Hold outpatient oral diabetes medications (glimepiride) * Basal insulin * Lantus 10 units SQ x 1 STAT, then 6 units this PM, then 8 units BID * Bolus insulin * NovoLog per scale ACHS and at 0200 tonight * Goal Range: Low 110 mg/dL - High 140 mg/dL * Correction Factor: 35 mg/dL/unit * Nutritional / Prandial insulin per carb ratio of 1 unit per 12 grams CHO consumed PLAN FOR DISCHARGE: * to be determined
[2020-01-06] MEDS: APIXABAN 5 MG TABLET PO SCH (20:34)
[2020-01-06] MEDS ORDERED: INSULIN GLARGINE SOLOSTAR 100 UNITS/ML 3 ML PEN SC ONE (21:00)
[2020-01-07] MEDS ORDERED: INSULIN ASPART 100 UNITS/ML 3 ML PEN SC ONE (02:00)
[2020-01-07 06:21] LABS: Estimated Average Glucose 203 mg/dl; Hemoglobin A1C 8.7 % (4.5-5.6)
[2020-01-07] MEDS: APIXABAN 5 MG TABLET PO SCH (08:32)
[2020-01-07] MEDS: METOPROLOL TARTRATE 25 MG TAB PO SCH (08:32)
[2020-01-07] MEDS: INSULIN ASPART 100 UNITS/ML 3 ML PEN SC SCH ×2 (08:35→12:41)
[2020-01-07] MEDS ORDERED: INSULIN GLARGINE SOLOSTAR 100 UNITS/ML 3 ML PEN SC SCH (09:00)
[2020-01-07] MEDS ORDERED: HYDROCORTISONE HC 2.5% CRM 30GM TUBE EXT ONE (09:29)
--- NOTE | 2020-01-07 09:55 | Pharmacy Report ---
Pharmacy Glycemic Short Note 2 - Date of Service January 07, 2020 - Glycemic Short BSG Results (Last 24 hours): 01/06/20 01/06/20 01/06/20 11:32 16:36 20:06 POC Glucose 268 H 219 H 225 H 01/07/20 01/07/20 01:59 07:44 POC Glucose 117 H 120 H OUTPATIENT ANTIDIABETIC REGIMEN: * Glimepiride 1mg PO daily * A1c = 8.7% 01/06/20 (eAG 203) ASSESSMENT: 01/06 * BSGs have improved over last 24 hrs. In total 34 units of SQ insulin given over last 24 hrs. * Fasting BSG 120 this AM with 16 units of basal on board - will continue same dose for next 24 hrs * Novolog doses did prevent BSGs from rising yesterday following meals - will continue to trial the same doses today now that basal deficiency corrected * A1c results now available and confirm the observed BSGs this admission are not greatly different than those in outpt setting 01/05 * Type 2 diabetic admitted for c/o ongoing back pain found to a new onset a fib w/ RVR * Patient's initial lab work reveals GLU of 305 however normal AG and bicarb * She was recently ordered steroid therapy, which could explain the hyperglycemia - however upon talking with her she stated she refused to take the steroid. No steroids are currently ordered for this patient. A recent A1c is not available, but I have ordered one to determine if today's lab findings are reflective of acute hyperglycemia or an ongoing level of inadequate control. Patient does not test BSGs at home. * Basal/bolus insulin regimen will be initiated based upon patient's weight and moderate/severe stress level PLAN FOR INPATIENT GLYCEMIC CONTROL: * Hold outpatient oral diabetes medications (glimepiride) * Basal insulin - no change * Lantus 8 units BID * Bolus insulin - no change * NovoLog per scale ACHS and at 0200 tonight * Goal Range: Low 110 mg/dL - High 140 mg/dL * Correction Factor: 35 mg/dL/unit * Nutritional / Prandial insulin per carb ratio of 1 unit per 12 grams CHO consumed PLAN FOR DISCHARGE: * A1c 8.7. Goal A1c likely < 7-8% given patient age and comorbidities. It is possible that her sulfonylurea is failing to produce appreciable effects on glycemic control. There is room to uptitrate this dosage (increase to 2mg then reeval effects in 2 weeks). A second agent should be considered on discharge to help achieve glycemic targets. Her eGFR likely falls in the 45- 60mL/min/1.73m2 range - per ADA recommendations, metformin may still be used however the dosage should be reduced by 50% and renal fxn should be monitored closely with recommendation to d/c metformin if eGFR less than 30mL/m in/1.73m2. Might consider starting metformin 500mg daily on discharge. Patient should be encourage to SBG at least once daily and ideally twice daily while medications are being titrated.
--- NOTE | 2020-01-07 11:34 | Discharge Summary ---
Date of Service January 07, 2020 Admission HPI Per Admitting Provider 74 y/o F presented to ED with upper back pain. She described it being severe and in between her shoulder blades. Denies associated shortness of breath, palpitation and dizziness. Pain started 3 weeks ago. She started to have neck around the same time and in upper back. The pain worse in last 3 days so came to ED. She did notice being nauseous when bending forward this morning 3 wks ago - She had rash on both sides of face on rastafarian region and was treated with acyclovir. She had new rashes coming and was prescribed prednisone during this period but never took it. 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 Principal Diagnosis Atrial Fibrillation with RVR Discharge Exam Constitutional well developed, + acute distress, + well hydrated and + thin Eyes PERRL, conjunctivae normal, anicteric sclerae Neck trachea midline, no thyromegaly Respiratory normal respiratory effort, lungs clear to auscultation Cardiovascular Rate/Rhythm: regular rate and regular rhythm Heart Sounds: no murmur Gastrointestinal (Abdomen) normal bowel sounds, soft, nontender, no hepatosplenomegaly Musculoskeletal no cyanosis or clubbing, extremities motor strength 5/5 Skin no rashes, warm and dry Neurologic patellar DTR's 2+ bilat, sensation intact Psychiatric A+Ox3, euthymic affect Discharge Data Allergies Allergy/AdvReac Type Severity Reaction Status Date / Time No Known Allergies Allergy Unverified 01/06/20 06:40 Consultations 01/06/20 07:43 ED Decision to Admit Stat Ordered Studies 01/06/20 06:41 CT angio chest PE protocol Stat 01/06/20 06:44 CT thoracic spine wo con Stat Hospital Course (1) Atrial fibrillation with RVR: 74 y/o F here with back pain noted to be in new onset rapid a fib in ED New onset A fib with RVR Received cardizem bolus and 4gm IV magnesium in ED. Converted to NSR while in the ED Troponin in ED normal Monitored on Tele Second troponin and TSH normal. Echo with normal EF and mild to moderate TR, RV pressure of 30-40 Added metoprolol 25mgs bid - tolerated well CHADSVASC score of 4 - started eliquis Morning of discharge - had a run of PAT for 8-10beats. Diabetes Type II Hyperglycemic in ED - 300. Beta Hydroxybutrate - 17. Usually well controlled A1c as outpatient except recent one from feb 2019 - 7.2 - plan was to add another agent - didn't follow up. Rechecked A1c this admission - 8.7 while in hospital - held glimepiride and kept on insulin. Discharged home on metformin 500mgs (new med) and increased dose of glimepiride to 2mgs. HLD/Osteoporosis Has declined being on meds. f/u PCP office 10 days. (2) Diabetes: (3) Hyperlipidemia: (4) Osteoporosis: Total Time Total Time Spent Total Time Spent (In Minutes): 35 min Discharge Plan Discharge Items Patient Disposition: Home - Self-Care Reason For Visit: AFIB W RVR Discharge Diagnosis: Atrial Fibrillation with Rapid ventricular rate Activity: Resume your previous activity Non-emergency contact: Primary Care Provider Call non-emergency contact if: you have any medication questions and your symptoms worsen Follow-up/Referrals: Chloe Youssef MD [Primary Care Provider] - 01/10/20 12:50 pm (You have a follow p appt with Dr. Brewer on Friday at 1250pm. Please arrive 15 minutes prior to your appt time, and remember your face mask. If this appt does not fit your schedule please call [phone] to reschedule. [address] ) Diet: Carb Consistent or DM2 and Heart Healthy Addtl Attending Provider Instructions: You were in the hospital for having atrial fibrillation with rapid heart rate which is new to you. Your heart rate converted to normal rhythm while in the ER. You have been started on metoprolol which will help to keep your heart in regular rhythm. You will take that twice a day. You tolerated this medicine well in the hospital You have also been started on eliquis (Apixiban) which is a blood thinner. Since you are on blood thinner - you should refrain from taking aspirin, ibuprofen, aleve to avoid risk of bleeding. You had echocardiogram done showing one valve to be leaking more. This will be followed in future by repeating echocardiogram. Your blood sugars are noted to be elevated and your A1c is 8.7. The dose of glimepiride is increased to 2mgs and metformin has been added for blood sugar control. You will follow up at primary care office on Jan 17 at 9.50am Pending Studies at Discharge: No Stand-Alone Forms: My [facility], Smoking Cessation Medications and DC Order Prescriptions: New metoprolol tartrate 25 mg Tablet 25 mg PO BID Qty: 60 RF: 0 Eliquis 5 mg Tablet 5 mg PO BID Qty: 60 RF: 0 glimepiride 2 mg tablet 2 mg PO DAILY Qty: 30 RF: 0 metformin 500 mg tablet extended release 24 hr 500 mg PO DAILY Qty: 30 RF: 0 Discontinued acyclovir 800 mg tablet 800 mg PO TID RF: 0 methylprednisolone 4 mg tablets,dose pack 0 mg PO UD RF: 0 glimepiride 1 mg tablet 1 mg PO DAILY RF: 0 gabapentin 100 mg capsule 100 mg PO BID RF: 0 clobetasol 0.05 % solution 1 applic TOPICAL UD RF: 0 Discharge Orders: Discharge Order (Routine); Ordered 01/07/20 Ordered By: Chloe Youssef Admission Data Admit Date/Time: 01/06/20 09:24 Attending Provider: Chloe Youssef Admit Provider: Chloe Youssef Primary Care Provider: Chloe Youssef Other Providers: Tomy Silva Other Interventions: Discharge Summary Assessment (RN) Last Done: 01/07/20 10:47
== END 2020-01-07 13:12 | disposition home or self-care (01) ==
LOC: ED 06:17 → 2W 06:17